=== PATIENT | female | born 1940 ===

== ENCOUNTER 2024-07-15 14:28 | Outpatient (REF) | payer OTHER, SELFPAY ==
[2024-07-15 15:35] LABS: Chloride* 97 mmol/L (96-114); Sodium* 137 mmol/L (135-149)
[2024-07-15 15:36] LABS: Potassium* 3.1 mmol/L (3.6-5.1)
[2024-07-15 15:38] LABS: Anion Gap 9 mEq/L (7-15); Carbon Dioxide* 31 mmol/L (20-32); Creatinine* 1.1 mg/dL (0.5-1.5); Estimated Glomerular Filt Rate 50 ml/min
[2024-07-15 15:39] LABS: Blood Urea Nitrogen* 18 mg/dL (7-30); Calcium* 8.7 mg/dL (8.4-10.6); Glucose* 116 mg/dL (60-115)
== END 2024-07-15 14:29 | disposition home or self-care (01) ==
LOC: NPINS 14:28
PROVIDERS: PCP Family Medicine; Visit Provider Family Medicine
DX: I50.32 Chronic diastolic (congestive) heart failure (principal)
CPT/HCPCS: 80048